=== PATIENT | male | born 1950 | race Caucasian/White ===

== ENCOUNTER 2016-05-31 09:02 | Inpatient (IN) | payer OTHER, MEDICARE ==
--- NOTE | 2016-05-27 16:11 | HPE ---
DATE OF SCHEDULED ADMISSION: 05/31/2016 HISTORY OF PRESENT ILLNESS: Mr. Luciano Jr., is a pleasant 65-year-old right-handed gentleman who is going to undergo decompressive lumbar spine surgery at L4-5 with possible lumbar fusion by Dr. Lopez for lumbar stenosis with neurogenic claudication. Patient states he has had chronic back pain that has just progressively worsened over the years. Denies any leg or foot pain but does have numbness and tingling, left greater than right foot, especially with standing. He finds that if he walks certain distances, he will get severe back pain and foot numbness. If he sits and rests for 30-40 seconds, this resolves and he can resume his activities. He also finds bending or stooping aggravates his pain. He denies any bowel or bladder dysfunction. He has tried various conservative measures without any significant lasting relief. ALLERGIES: He has no known drug allergies. CURRENT MEDICATIONS: - Surekha 10/40 mg one by mouth daily - meloxicam 15 mg by mouth daily - aspirin 81 mg daily - levetiracetam extended release 500 mg tablet one in the morning, one at night - Bystolic 2.5 mg one by mouth daily - pantoprazole sodium 40 mg daily PAST MEDICAL HISTORY: Is significant for hypertension, hyperlipidemia, chronic low back pain, osteoarthritis, cataracts, vitamin D deficiency, and pneumonia. PAST SURGICAL HISTORY: Significant for bilateral cataract surgery. SOCIAL/FAMILY HISTORY: He is retired. He worked as a contractor/schaeffer. He states he smokes about a pack of cigarettes a day and has smoked for 40+ years. He admits to drinking two beers a day. Denies any drug use. His mother passed at the age of 68 secondary to lung cancer, and father passed at the age 71, unknown reasons. REVIEW OF SYSTEMS: Are remarkable for aforementioned. PHYSICAL EXAM: GENERAL APPEARANCE: No acute distress. Well-developed, well-nourished, slightly overweight gentleman. HEENT: Head is normocephalic, atraumatic. Pupils equal, round, reactive to light. Extraocular movements (EOMs) full and conjugate. RESPIRATORY: Symmetrical rise and fall of his chest. He does have slight decreased breath sounds bilaterally upper and lower lobes. No wheezes, rales, or rhonchi are present. CARDIAC: Regular rate and rhythm. No murmurs. No rubs. No gallops. ABDOMEN: Positive bowel sounds. Soft, nontender. No masses. No guarding. MUSCULOSKELETAL/NEUROLOGIC EXAM: Speech is clear and fluent. Smile is symmetrical. Tongue is midline. Hearing is grossly intact bilaterally to finger rub. Good shoulder shrug bilaterally. No pronator drift. He has good strength in his bilateral biceps, triceps, deltoid, and cullet crusher and washer strength at 5/5. Bilateral quadriceps, hamstrings, gastrocnemius, anterior tibialis, iliopsoas, extensor hallucis longus are strong at 5/5. Reflexes biceps and triceps are bilaterally at 1, symmetrical. No pathologic reflexes. Knees are bilaterally at 2. Ankles trace bilaterally. Gait and balance normal. Romberg negative. Patient is able to do heel-toe walking without any signs of weakness. He is alert and oriented times three. Judgment and insight good. Mood and affect appropriate to setting. ASSESSMENT: 1. Chronic low back pain. 2. Lumbar spondylosis. 3. Lumbar stenosis with neurogenic claudication. PLAN: Patient is going to undergo L4-5 decompressive lumbar spine surgery with possible lumbar fusion by Dr. Lopez. Dr. Lopez has examined the patient and reviewed the nature of the surgical procedure and discussed with patient the risks and benefits. Patient has also had pulmonary clearance by [facility].
[~2016-05-31] VITALS: Ht 177.8 cm; Wt 102.1 kg
[~2016-05-31 09:02] MED LIST: AREDS 2 PO; ASPI81TA85 PO; AZOR10TA3 PO; BYST2.5T2 PO; LEVE500XR PO; MELO15TA4 PO; PROA1AER INH; PROT1TAB2 PO
[2016-05-31] MEDS ORDERED: CEFUROXIME SODIUM 1.5 GM in D5W MINI-BAG PLUS 50 ML IV ONE (09:15)
[2016-05-31] MEDS ORDERED: LR 1,000 ML IV SCH ×2 (09:15→17:45)
[2016-05-31] MEDS ORDERED: dexameTHASONE 4 MG/ML 1ML VIAL (J1100) IV ONE (09:15)
[2016-05-31] MEDS ORDERED: LIDOCAINE 2% INJ 100 MG/5 ML SDV (FOR ANES.) As Ordered ONE (10:04)
[2016-05-31] MEDS ORDERED: MIDAZOLAM INJ 2 MG/2 ML VIAL (J2250) As Ordered ONE (10:04)
[2016-05-31] MEDS ORDERED: dexameTHASONE 4 MG/ML 1ML VIAL (J1100) As Ordered ONE (10:04)
[2016-05-31] MEDS ORDERED: PROPOFOL 200 MG/20 ML VIAL As Ordered ONE ×2 (10:04→14:49)
[2016-05-31] MEDS ORDERED: fentaNYL 250 MCG/5 ML INJECTION (J3010) As Ordered ONE (10:04)
[2016-05-31] MEDS ORDERED: ROCURONIUM BROMIDE 50 MG/5 ML VIAL As Ordered ONE (10:04)
[2016-05-31] MEDS ORDERED: methylPREDNISolone SUSP 40 MG/ML (DEPO-medrol) VIAL (J1030) As Ordered ONE (10:56)
[2016-05-31] MEDS ORDERED: THROMBIN SOLN 20,000 UNITS KIT As Ordered ONE (10:56)
[2016-05-31] MEDS ORDERED: BACITRACIN PWD 50,000 UNITS VIAL As Ordered ONE ×2 (10:57→16:20)
[2016-05-31] MEDS ORDERED: NICOTINE 21MG/24HR 1 EA TRANSDERMAL TD ONE (11:15)
[2016-05-31] MEDS ORDERED: ALBUTEROL SULFATE 2.5 MG/0.5 ML INH NEB SOLN NEB SCH (12:45)
--- NOTE | 2016-05-31 13:40 | REP ---
MR LUMBAR SPINE WITHOUT CONTRAST: HISTORY: Back pain. COMPARISON: 07/12/2015 Decreased signal intensity on T2-weighted images is present in the lumbar intervertebral discs. The discs are decreased in height. These findings are consistent with disc degeneration. A diffuse disc bulge is present at the L1-2 level. There is an increase in the amount of epidural fat. There is hypertrophy of the posterior articulating facets. There is minimal compression of the thecal sac. The L1 nerves exit the neural foramina without compression. A diffuse disc bulge is present at the L2-3 level. There is an increase in the amount of epidural fat. There is hypertrophy of the posterior articulating facets. There is minimal compression of the thecal sac. The L2 nerves exit the neural foramina without compression. A diffuse disc bulge is present at the L3-4 level. There is an increase in the amount of epidural fat. There is hypertrophy of the ligamenta flava and posterior articulating facets. There is severe compression of the thecal sac. The L3 nerves exit the neural foramina without compression. A diffuse disc bulge with associated osteophyte formation is present at the L4-5 level. There is an increase in the amount of epidural fat. There is hypertrophy of the ligamenta flava and posterior articulating facets. These findings produce severe central canal stenosis. There is compression of the L4 nerves in the neural foramina. A diffuse disc bulge is present at the L5-S1 level. There are 2 mm of retrolisthesis of L5 on S1. There is an increase in the amount of epidural fat. There is moderate compression of the thecal sac. There is compression of the L5 nerves in the neural foramina. The conus medullaris is normal in appearance terminating at the level of the L1-2 intervertebral disc. Increased signal intensity on T2-weighted images is present in the endplates of the L1 through S1 vertebral bodies. This represents degenerative change. IMPRESSION: 1. Diffuse disc bulge and epidural lipomatosis at the L1-2 and L2-3 levels with minimal thecal sac compression. 2. Diffuse disc bulge and epidural lipomatosis at the L3-4 level with severe thecal sac compression. There has been progression of the thecal sac compression. 3. Severe central canal stenosis at the L4-5 level secondary to disc bulge epidural lipomatosis, ligamentous and facet hypertrophy and osteophyte formation. There is compression of the L4 nerves in the neural foramina. 4. Diffuse disc bulge and epidural lipomatosis at the L5-S1 level with moderate thecal sac compression. There is compression of the L5 nerves in the neural foramina. There has been progression of the thecal sac compression. Signed by Ag Vickers MD 05/31/2016 01:59 P
[2016-05-31] MEDS ORDERED: PHENYLEPHRINE INJ 10MG/ML VIAL (J2370) As Ordered ONE (14:11)
[2016-05-31] MEDS ORDERED: GLYCOPYRROLATE INJ 0.2 MG/ML 2 ML VIAL As Ordered ONE (14:37)
[2016-05-31] MEDS ORDERED: NEOSTIGMINE 1MG/ML 5 ML SYRINGE (J2710) As Ordered ONE (14:37)
[2016-05-31] MEDS ORDERED: HYDROmorphone HCL 2 MG/ML 1ML VIAL (J1170) As Ordered ONE (14:41)
[2016-05-31] MEDS ORDERED: ESMOLOL INJ 100MG/10ML VIAL As Ordered ONE (16:37)
[2016-05-31] MEDS ORDERED: fentaNYL 100 MCG/2 ML INJECTION (J3010) As Ordered ONE ×2 (16:41→16:58)
--- NOTE | 2016-05-31 17:00 | REP ---
INTRAOPERATIVE PORTABLE THREE VIEW LUMBOSACRAL SPINE SERIES, 05/31/2016: INDICATION: Chronic low back pain. Comparison made with lumbosacral spine series 12/21/2015. FINDINGS: On image 1, cross-table lateral view performed in OR at 2:34 pm, on 05/31/2016 demonstrated posterior surgical marker overlying posterior articular facets at L4-5. A small posterior surgical retractor is also identified posterior to the posterior spinous process of L5. On image #2 performed at 4:27 pm, there has been interval placement of a X-Stop device between the posterior elements of L4 and L5. A prone portable image of lumbosacral spine at 4:28 pm demonstrated again the X-Stop device at the L4-5 disc level. Advanced degenerative disc changes are noted at L3-4, L4-5 and to a lesser extent the remainder of the visualized lumbar and lumbosacral disc spaces. Moderate atherosclerotic changes are noted within the abdominal aorta, which is 3.1 cm AP dimension at L2 level, consistent with borderline aneurysmal dilatation, with distal tapering. IMPRESSION: Status post placement of X-Stop device overlying posterior elements L4 and L5 in satisfactory position. MTDD
[2016-05-31] MEDS: fentaNYL 100 MCG/2 ML INJECTION (J3010) IV PRN ×4 (17:25→17:40)
[2016-05-31] MEDS ORDERED: MORPHINE 4 MG/ML 1ML SYRINGE As Ordered ONE (17:35)
[2016-05-31] MEDS ORDERED: PERCOCET 5MG/325MG TAB PO PRN (17:45)
[2016-05-31] MEDS ORDERED: NORCO, ANEXSIA 5/325MG TABLET (HYDROcodone/ACETAMINOPHEN) PO PRN ×2 (17:45)
[2016-05-31] MEDS ORDERED: MORPHINE 2 MG/ML 1ML SYRINGE IV PRN ×2 (17:45)
[2016-05-31] MEDS ORDERED: ACETAMINOPHEN TAB 650MG DOSE (2X325MG) PO PRN (17:45)
[2016-05-31] MEDS ORDERED: METOCLOPRAMIDE INJ 10MG/2ML VIAL (J2765) IV PRN (17:45)
[2016-05-31] MEDS ORDERED: ONDANSETRON 4MG/2ML VIAL (J2405) IV PRN ×2 (17:45)
[2016-05-31 19:00] VITALS: BP 128/69
[2016-05-31 19:30] VITALS: BP 129/69
[2016-05-31] MEDS: levETIRAcetam **XR** 500 MG TABLET PO SCH (20:19)
[2016-05-31] MEDS: OLMESARTAN MEDOXOMIL 20 MG TAB (BENICAR) PO SCH (20:20)
[2016-05-31] MEDS: amLODIPine 10 MG TAB PO SCH (20:21)
[2016-05-31] MEDS: ASPIRIN 81 MG CHEW TABLET PO SCH (20:21)
[2016-05-31] MEDS: KCL 20MEQ IN D5/0.45NS 1000ML 1,000 ML IV SCH (20:22)
[2016-05-31 20:30] VITALS: BP 133/69
[2016-05-31 21:30] VITALS: BP 128/70
[2016-05-31 22:30] VITALS: BP 127/62
[2016-06-01 02:00] VITALS: BP 133/72
[2016-06-01] MEDS: KCL 20MEQ IN D5/0.45NS 1000ML 1,000 ML IV SCH (02:12)
[2016-06-01 06:00] VITALS: BP 130/69
[2016-06-01] MEDS ORDERED: PANTOPRAZOLE 40MG TAB (PROTONIX) PO SCH (09:00)
[2016-06-01] MEDS ORDERED: NEBIVOLOL 5 MG TAB (BYSTOLIC) PO SCH (09:00)
[2016-06-01] MEDS: OLMESARTAN MEDOXOMIL 20 MG TAB (BENICAR) PO SCH (09:23)
[2016-06-01] MEDS: levETIRAcetam **XR** 500 MG TABLET PO SCH (09:23)
[2016-06-01 09:24] VITALS: BP 126/69
[2016-06-01] MEDS: amLODIPine 10 MG TAB PO SCH (09:24)
[2016-06-01] MEDS: ASPIRIN 81 MG CHEW TABLET PO SCH (09:24)
[2016-06-01] MEDS ORDERED: NORC5TAB PO (10:11)
[2016-06-01] MEDS ORDERED: CIPR500S PO (10:12)
[2016-06-01] MEDS ORDERED: CIPR-250 PO (10:13)
[2016-06-01] MEDS ORDERED: PREVNAR 13 VACCINE SYRINGE (CPT CODE:90670) IM ONE (11:00)
--- NOTE | 2016-06-01 15:02 | RO ---
DATE OF PROCEDURE: 05/31/2016 PREOPERATIVE DIAGNOSES: Advanced lumbar spondylosis with radiculopathy, neurogenic claudication, cauda equina dysfunction, peroneal and peripheral neuropathy, obesity. POSTOPERATIVE DIAGNOSES: Advanced lumbar spondylosis with radiculopathy, neurogenic claudication, cauda equina dysfunction, peroneal and peripheral neuropathy, obesity. PROCEDURE: Bilateral transpedicle decompression at L4-L5 intraspinous/intralaminar fusion and segmental fixation using Meade cage using local auto and allograft putty and partial facet rhizotomies at L3 through S1 bilaterally. ANESTHESIA: General. SURGEON: Hui Lopez MD [employer]OR CONTRACTOR: FINDINGS: Please see my office notes for detailed preoperative evaluation and discussions. A detailed and extensive family conferences were held in the preoperative area this morning. His clinical findings and MRI findings were shared with the patient and family. There was no clinical change in his examination. He has again stated that he cannot stand to walk for more than several minutes before he has to sit down as the pain intensifies and the legs get weak. The MRI showed diffuse and severe degenerative changes involving the disc space, as well as the posterior elements. This change was worse at L4-5. The work up showed epidural lipomatosis as well. Last EMG nerve conduction study showed radiculopathy along with peroneal and peripheral neuropathies. The patient and his family are aware of all options, risks, scope, expected outcome, sequelae, and complications of the proposed salvage procedure. They understood that no guarantees can be given, if anything, and the risks of surgery, included, but not limited to , meningitis, loss of vital body functions, failure of surgery, fusion and instrumentation, if used, need for multiple surgeries, pulmonary embolism (PE), myocardial infarction, inability to position him safely in prone position on account of his obesity and respiratory compromise, bleeding, and/or any catastrophic sequelae. Patient and family were aware that he is extremely high risk candidate for surgery and his guarded prognosis is based on his clinical, neurological and diagnostic findings, comorbidities, including tobacco and alcohol usage and obesity. The patient and family wished to proceed with surgery, as once again, the patient states that there is no way that he can live with his pain and burning sensation, numbness and weakness in the legs, and is willing to take any or all risks for any possible benefit. All matters pertaining to surgery, anesthesia, and followup care had been discussed once again with the patient and his family, and he was taken to the operating room. DESCRIPTION OF PROCEDURE: Once in the operating room, general endotracheal anesthesia was given by the anesthesia service. The area of surgery was prepped and draped in the usual sterile fashion. Cervical collar was placed throughout this procedure as he has some cervical spondylosis as well, but he denied any symptoms. The patient was then positioned on the radiolucent table, translucent Nikita frame. Using surface and anatomic landmarks, a skin incision was given over the expected interspace of L4-L5 and was confirmed with xrays. Alveolar layer was reached and incised. Cut edges of the blood vessels were coagulated with bipolar cautery and Plasma blade. Lumbodorsal fascia was incised. The paraspinal muscles were from the midline. Structures were held apart with the held of microdiscectomy retractors. Sacrum was realizedd. L4-L5 interspace was identified. At this time, perioperative x-rays were done to confirm the location. At this time, a generous daniela-semi laminectomy was performed at L4 and L5. There was marked hypertrophy of the facets and ligamentum flavum and this was removed. Lateral recess was identified. Adipose tissue and spondylitic changes. Partial facetectomies were performed. Rhizotomies were performed. The decompression was carried superiorly and laterally under the pedicles to make more room for the exiting nerve root. The interspinous ligament was removed and similar dissection was carried out on the right side. The findings were similar though less dramatic,with hard from bulging disc, which was left in situ. At this time a vertebral care advocate was placed and it appeared 14 mm off the distracting device would suffice between the spinous for intralaminar decompression. During the process of distraction, the posterior aspect of the spinous process was fractured. The Meade device was placed with the flanged fixation to secure good bony purchase. Hemostasis was checked and secured. Blood loss was 200 mL, according to the ansthesiologist. The wound was closed in anatomic layers. A sterile bandage was applied at the site of the surgery. Patient tolerated the procedure satisfactory and was transferred to recovery room in stable condition. Operative findings were discussed with the family in the waiting room. INOCENCIA
--- NOTE | 2016-06-05 09:37 | DSES ---
DATE OF ADMISSION: 05/31/2016 DATE OF DISCHARGE: 06/01/2016 FINAL DIAGNOSIS: 1. Lumbar spondylosis with radiculopathy. 2. Neurogenic claudication. 3. Cauda equina dysfunction. 4. Peroneal and peripheral neuropathy. 5. Obesity. PROCEDURE: Wide bilateral transpedicular decompression at L4-5 with intraspinous/intralaminar fusion and segmental fixation u sing [place] cage of 14 mm using local auto and allograft putty and partial facet rhizotomies from L3 through S1 bilaterally. Please see my office notes for detailed preoperative evaluation and discussions. The patient was seen in the preoperative area where his clinical findings were unchanged. After family conference was held and after all matters pertaining to the surgery, anesthesia and followup care were discussed with him again, he wished to proceed with surgery and he underwent the above procedure uneventfully. I was called the subsequent morning by the charge nurse on the floor that the patient is quite cheerful, ambulating and has no symptoms of any kind and is not taking any pain medication, and is anxious to go home and does not want to wait for my rounds and claimed that he had all the instructions which he had discussed with me, as well as written and verbal instructions with which he is fully aware and once again, did not want to wait for me to make rounds. He was discharged with the written instructions. ms or any questions. The patient would not wait
== END 2016-06-01 11:45 | disposition home or self-care (01) | DRG 30 ==
LOC: M OR 09:02 → M MS5PR 18:32
PROVIDERS: ADMIT Neurological Surgery; ATTEND Neurological Surgery
PROC: 01NB0ZZ Release Lumbar Nerve, Open Approach (ICD-10-PCS; 2016-05-31)
PROC: 0SG10A1 (ICD-10-PCS; principal; 2016-05-31 11:05)
DX: G83.4 Cauda equina syndrome (principal); M47.816 Spondylosis without myelopathy or radiculopathy, lumbar region; E66.9 Obesity, unspecified; G62.9 Polyneuropathy, unspecified

== ENCOUNTER → 2016-07-10 | Outpatient (CLI) | payer OTHER ==
[~2016-07-10] MED LIST changes: +CIPR-250 PO; +CIPR500S PO; +NORC5TAB PO
--- NOTE | 2016-07-10 10:55 | REP ---
LUMBOSACRAL SPINE: Five views lumbosacral spine performed. There is no compression fracture. New metallic hardware projects over the posterior spinous process of L5. There is slight retrolisthesis of L5 with respect to S1. There is no compression fracture. Diffuse large osteophytes are present. Moderate disc space narrowing is seen at all levels with subchondral sclerosis and vacuum phenomenon. There is mild curvature toward the right. The posterior elements are intact. There are scattered vascular calcifications. IMPRESSION: New metallic hardware projects over the spinous process of L5. No acute fracture or dislocation. Arthritic changes are stable. Signed by Shaan Arzola MD 07/10/2016 04:56 P
== END ==
LOC: M LRY 09:51
PROVIDERS: ATTEND Neurological Surgery
DX: M47.896 Other spondylosis, lumbar region (principal)

== ENCOUNTER → 2018-08-16 | Outpatient (CLI) | payer OTHER ==
[~2018-08-16] MED LIST changes: +MELO15TA28 PO; -MELO15TA4 PO; +NORC1TAB7 PO; -NORC5TAB PO; -PROA1AER INH; +PROAAER10 INH
[2018-08-16 11:31] LABS: BLOOD UREA NITROGEN 12 MG/DL (7-18); CALCIUM LEVEL 9.3 MG/DL (8.8-10.2); CARBON DIOXIDE LEVEL 28 MEQ/L (21-32); CHLORIDE LEVEL 100 MEQ/L (98-107); CREATININE FOR GFR 1.05 MG/DL (0.70-1.30); GLOMERULAR FILTRATION RATE > 60.0 (>49); GLUCOSE, FASTING 97 MG/DL (70-100); POTASSIUM SERUM 4.6 MEQ/L (3.5-5.1); SODIUM LEVEL 136 MEQ/L (136-145)
== END ==
LOC: M LRY 07:59
PROVIDERS: ATTEND Specialist
DX: D41.02 Neoplasm of uncertain behavior of left kidney (principal)

== ENCOUNTER → 2022-07-27 | Outpatient (CLI) | payer MEDICARE ==
[~2022-07-27] MED LIST changes: +AMLO-605 PO; -ASPI81TA85 PO; +ASPI81TA86 PO; -AZOR10TA3 PO
== END ==
LOC: M RAD 07:30
PROVIDERS: ATTEND Family Medicine
DX: Z12.2 Encounter for screening for malignant neoplasm of respiratory organs (principal); F17.210 Nicotine dependence, cigarettes, uncomplicated; J44.9 Chronic obstructive pulmonary disease, unspecified; R91.8 Other nonspecific abnormal finding of lung field; J84.10 Pulmonary fibrosis, unspecified; M47.9 Spondylosis, unspecified

== ENCOUNTER 2024-01-04 08:46 | Day surgery (SDC) | payer MEDICARE ==
[~2024-01-04] VITALS: Ht 177.8 cm; Wt 125.2 kg
[~2024-01-04 08:46] MED LIST changes: +ACET-897 PO; +ADVA115A INH; +ALBU8.5H; +AMLO-354 PO; +ATOR40TA75 PO; +ECOT81TA5 PO; +ERGO500029 PO; +FLUTISP; +METO1TAB32 PO; +OCUVTAB4 PO; +OMEG-28 PO; +PANT40TA29 PO
[2024-01-04] MEDS ORDERED: LIDOCAINE 2% 100MG/5ML SDV (FOR ANES.) As Ordered ONE (08:56)
[2024-01-04] MEDS ORDERED: propofoL 200 MG/20 ML VIAL As Ordered ONE (08:56)
[2024-01-04] MEDS: NS 1,000 ML IV ONE (09:12)
[2024-01-04 10:46] VITALS: TEMP 98.9
[2024-01-04 11:06] VITALS: BP 152/85; O2SAT 93
== END 2024-01-04 11:20 | disposition home or self-care (01) ==
LOC: M OPP 08:46
PROVIDERS: ATTEND Surgery
DX: Z86.010 Personal history of colon polyps (principal); D12.6 Benign neoplasm of colon, unspecified; I48.91 Unspecified atrial fibrillation; G47.33 Obstructive sleep apnea (adult) (pediatric); Z99.89 Dependence on other enabling machines and devices; Z79.01 Long term (current) use of anticoagulants; Z79.02 Long term (current) use of antithrombotics/antiplatelets; Z79.899 Other long term (current) drug therapy

== ENCOUNTER → 2024-02-12 | Outpatient (CLI) | payer MEDICARE ==
[2024-02-12 11:26] LABS: BLOOD UREA NITROGEN 10 MG/DL (9-23); CREATININE FOR GFR 1.08 MG/DL (0.70-1.30); GLOMERULAR FILTRATION RATE > 60.0 (>42)
== END ==
LOC: M LAB 09:29
PROVIDERS: ATTEND Surgery
DX: D12.4 Benign neoplasm of descending colon (principal)

== ENCOUNTER → 2024-02-14 | Outpatient (CLI) | payer MEDICARE ==
[~2024-02-14] MED LIST changes: +GASTROGRAFIN SOLUTION 30ML As Ordered ONE; +ISOVUE-370 76% 100ML VIAL As Ordered ONE
== END ==
LOC: M RAD 12:41
PROVIDERS: ATTEND Surgery
DX: D12.4 Benign neoplasm of descending colon (principal); R91.8 Other nonspecific abnormal finding of lung field; N28.1 Cyst of kidney, acquired; K40.20 Bilateral inguinal hernia, without obstruction or gangrene, not specified as recurrent; I70.0 Atherosclerosis of aorta; K57.90 Diverticulosis of intestine, part unspecified, without perforation or abscess without bleeding
CPT/HCPCS: 74177; Q9963; Q9967

== ENCOUNTER → 2024-09-15 | Outpatient (CLI) | payer MEDICARE ==
[~2024-09-15] MED LIST changes: +AMLO-325 PO; -AMLO-354 PO; -GASTROGRAFIN SOLUTION 30ML As Ordered ONE; -ISOVUE-370 76% 100ML VIAL As Ordered ONE
[2024-09-15 08:09] LABS: ABG O2 SATURATION 88.5 % (95.0-99.0); ABG PARTIAL PRESSURE CO2 38.3 mmHg (35.0-45.0); ABG PARTIAL PRESSURE O2 54.1 mmHg (75.0-100.0); ABG SITE UAC; ABG TOTAL CO2 27.1 MMOL/L (23.0-31.0); ABG pH (ARTERIAL) 7.449 UNITS (7.350-7.450)
== END ==
LOC: M LAB 07:41
PROVIDERS: ATTEND Physician Assistant
DX: J44.9 Chronic obstructive pulmonary disease, unspecified (principal); R06.02 Shortness of breath; R91.8 Other nonspecific abnormal finding of lung field

== ENCOUNTER → 2024-12-01 | Outpatient (CLI) | payer MEDICARE | LOC: M SLEEP 20:00 | PROVIDERS: ATTEND Nurse Practitioner Adult Health | DX: G47.33 Obstructive sleep apnea (adult) (pediatric) (principal) ==